=== PATIENT | female | born 1965 | race Caucasian/White ===

== ENCOUNTER → 2016-06-19 | Outpatient (CLI) | payer BC ==
[~2016-06-19] MED LIST: ALBUTEROL17 G1 IH; ALBUTEROL17 GM INH; ALPRAZOLAM PO; ALPRAZOLAM1 MG PO; AMOXICILLIN875 MG PO; ANTIVERT PO; CARISOPRODOL PO; COZAAR25 MG PO; DECADRON PO; FERROUS SULFATE PO; HEARTBURN RELIE75 MG PO; HYDROCODON-ACE1 EAC5 PO; HYDROCODONE BITA5 GM PO; KEFLEX500 MG PO; LISINOPRIL PO; LISINOPRIL10 MG PO; LISINOPRIL20 MG PO; LORTAB 5/500 TA1 TA1 PO; NAPROSYN500 MG PO; NORCO 10-325 TA1 TAB PO; OMEPRAZOLE20 M1 PO; SOMA PO; SPIRIVA18 MCG INH; VICODIN 5/500 T1 TAB PO; VICODIN PO; VOLTAREN75 MG PO; [UNRECOGNIZED DRUG - REMARK] PO
--- NOTE | ~2016-06-19 | CR184 ---
[facility] A Service of [facility] RADIOLOGY TEXT RESULTS PATIENT: ISSAC ELDRIDGE LOCATION: [facility] : 65 UNIT #: [id number] AGE: [address]: Liliana Coffey MD SEX: F ORDER DR: [id number] [address] [address] [id number] O MR#: [id number] Acc #: [id number] NAME: ISSAC ELDRIDGE : 1965 SEX: F STUDY DATE/TIME: 06/19/2016 12:05 UNIT: [facility] ROOM: STUDY DESCRIPTION: CR Lumbar Spine Min 4 Views Attending Physician: Liliana Coffey M.D. Referring Physician: Liliana Coffey M.D. Ordering Physician: Liliana Coffey M.D. Primary Care Physician: Liliana Coffey M.D. MEDICAL IMAGING REPORT This report is preliminary unless electronic signature is present. EXAM Lumbar spine, 3 views, 06/19/2016 HISTORY Chronic low back pain. Back pain for 15 years with left lower extremity radiculopathy, left leg numbness and tingling. FINDINGS 3 views of the lumbar spine demonstrate no fracture. There is 5 mm anterolisthesis of L4 on L5, which is likely due to facet arthropathy. There is degenerative change with mild disc space narrowing at L4-5 and L5-S1. There is degenerative change involving the articular facets. There is a 5-mm calcification in the mid portion of the left kidney. If there is clinical concern for an obstructing renal stone, consider correlation with CT scan of the abdomen and pelvis without contrast using renal stone protocol. Intrauterine contraceptive device is seen in the pelvic midline. IMPRESSION 1. Mild degenerative change in the lumbar spine. No acute abnormality. 2. 5-mm calcification in the mid portion of the left kidney. If there is clinical concern for an obstructing left renal stone, consider correlation with CT scan of the abdomen and pelvis without contrast using renal stone protocol. Dictated by... Ayden Lobo M.D. THIS IS AN ELECTRONICALLY VERIFIED REPORT Ayden Lobo M.D. at 06/20/2016 2:54 PM [facility] A Service of [facility] RADIOLOGY TEXT RESULTS PATIENT: ISSAC ELDRIDGE LOCATION: [facility] : 65 UNIT #: [id number] AGE: [address]: Liliana Coffey MD SEX: F ORDER DR: TIP/alejandra TD: 06/19/2016 23:52 JOB #: [id number] MEDICAL IMAGING REPORT
== END | disposition home or self-care (01) ==
LOC: SRAD 11:52
DX: M54.5 Low back pain (principal); M47.816 Spondylosis without myelopathy or radiculopathy, lumbar region; N28.89 Other specified disorders of kidney and ureter
CPT/HCPCS: 72110

== ENCOUNTER 2016-08-02 23:03 | Emergency (ER) | payer BC ==
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
[~2016-08-02 23:03] MED LIST changes: -KEFLEX500 MG PO; -NAPROSYN500 MG PO
[2016-08-02 23:47] LABS: URINE SOURCE CLEAN CATCH
[2016-08-02 23:50] LABS: URINE APPEARANCE HAZY; URINE BILIRUBIN NEG (NEG); URINE BLOOD 3+ (NEG); URINE COLOR DK YELLOW; URINE GLUCOSE NEG (NORM); URINE KETONE TRACE (NEG); URINE LEUKOCYTE ESTERASE TRACE (NEG); URINE NITRATE NEG (NEG); URINE PH 5.5 (5-8); URINE PROTEIN TRACE (NEG); URINE SPECIFIC GRAVITY >=1.030 (1.003-1.035); URINE UROBILINOGEN 0.2 MG/DL (NORM)
[2016-08-02 23:54] LABS: MICRO INDICATED? YES
[2016-08-02 23:59] LABS: CULTURE INDICATED? YES; URINE AMORPHOUS SEDIMENT AMORP URATES; URINE BACTERIA 2+ (NEG); URINE CRYSTALS CALCIUM OXALATE /[HPF]; URINE MUCUS PRESENT; URINE RBC 100-200 /[HPF] (0-2); URINE SQUAMOUS EPITHELIAL CELL FEW /[HPF]
[2016-08-03 01:28] LABS: BASOPHIL# 0.1 X10e3 (0-0.3); BASOPHIL% 1.3 % (0-2.5); EOSINOPHIL# 0.3 X10e3 (0-0.7); EOSINOPHIL% 4.1 % (0.0-7.0); HEMATOCRIT 36.6 % (35.0-45.0); HEMOGLOBIN 12.3 gm/dL (12.0-16.0); LYMPHOCYTE# 2.6 X10e3 (1.0-3.5); MEAN CELL VOLUME 96.6 FL (83-96); MEAN CORPUSCULAR HEMOGLOBIN 32.6 PG (28-34); MEAN CORPUSCULAR HGB CONC 33.8 g/dL (30-36); MEAN PLATELET VOLUME 8.1 FL (6.5-11.5); MONOCYTE# 0.6 X10e3 (0-1.0); MONOCYTE% 8.4 % (3.0-12.0); NEUTROPHIL# 3.7 X10e3 (1.5-7.1); NEUTROPHIL% 50.2 % (40-75); PLATELET COUNT 273 X10e3 (140-420); RED BLOOD COUNT 3.78 X10e (3.90-5.30); RED CELL DISTRIBUTION WIDTH 13.1 % (11.0-15.5); WHITE BLOOD COUNT 7.3 X10e3 (4.0-10.5)
[2016-08-03 01:29] LABS: DIFF IND NO
[2016-08-03 01:41] LABS: ALBUMIN SERUM 3.9 g/dL (3.5-5.0); BILIRUBIN,TOTAL 0.1 mg/dL (0.2-2.0); BUN/CREATININE RATIO 27.77; CREATININE SERUM 0.9 mg/dL (0.6-1.4); GLOM FILT RATE Estimated 74.6 mL/min (>60); POTASSIUM 3.7 mmol/L (3.5-5.1); PROTEIN TOTAL SERUM 5.9 g/dL (6.0-8.3)
[2016-08-03] MEDS ORDERED: NAPROSYN500 MG PO (03:00)
[2016-08-03] MEDS ORDERED: KEFLEX500 MG PO (03:00)
== END 2016-08-03 03:00 | disposition home or self-care (01) ==
LOC: SED 23:03
PROVIDERS: Physician Assistant Medical
DX: S00.83XA Contusion of other part of head, initial encounter (principal); S30.0XXA Contusion of lower back and pelvis, initial encounter; I10 Essential (primary) hypertension; N39.0 Urinary tract infection, site not specified; Z79.899 Other long term (current) drug therapy; Y08.89XA Assault by other specified means, initial encounter; Y92.009 Unspecified place in unspecified non-institutional (private) residence as the place of occurrence of the external cause
CPT/HCPCS: 36415; 74177; 80053; 81003; 85025; 87086; 99284; Q9967